=== PATIENT | female | born 1980 | race Caucasian/White ===

== ENCOUNTER 2021-11-06 18:48 | Emergency (ER) | payer MEDICAID ==
[~2021-11-06] VITALS: Ht 165.1 cm; Wt 82.0 kg
[2021-11-06 19:11] VITALS: BP 150/99
[2021-11-06] MEDS ORDERED: PREDNISONE 20MG TABLET PO STA (19:30)
[2021-11-06] MEDS ORDERED: ALBUTEROL (0.083%) 2.5MG/3ML NEB HHN STA (19:30)
[2021-11-06] MEDS ORDERED: IPRATROPIUM BROMIDE (0.02%) 0.5MG/2.5ML NEB HHN STA (19:30)
[2021-11-06] MEDS ORDERED: ALBU18HF2 IH (22:46)
[2021-11-06] MEDS ORDERED: P50 MT (22:46)
== END 2021-11-06 23:04 | disposition home or self-care (01) ==
LOC: ER 18:48
DX: J45.901 Unspecified asthma with (acute) exacerbation (principal); Z98.890 Other specified postprocedural states; Z88.0 Allergy status to penicillin
CPT/HCPCS: 71045; 94644; 99285; J7512; Z7610